=== PATIENT | female | born 1990 | race Caucasian/White ===

== ENCOUNTER 2023-12-04 13:33 | Outpatient (CLI) | payer BC | END 2023-12-04 13:34 | disposition home or self-care (01) | LOC: MRI 13:33 | PROVIDERS: ATTEND Student in an Organized Health Care Education/Training Program | DX: M23.92 Unspecified internal derangement of left knee (principal); M22.42 Chondromalacia patellae, left knee; M94.8X8 Other specified disorders of cartilage, other site ==